=== PATIENT | female | born 1980 | race Caucasian/White ===

== ENCOUNTER → 2017-07-16 | Outpatient (CLI) | payer BC ==
[2017-07-16 15:10] LABS: BARBITURATES NEG (NEG); BENZODIAZEPINES POS (NEG); CANNABINOIDS POS (NEG); COCAINE NEG (NEG); METHADONE NEG (NEG); OPIATES NEG (NEG); PHENCYCLIDINE NEG (NEG)
[2017-07-16 15:23] LABS: ALBUMIN 4.1 g/dL (3.4-5.0); ALBUMIN/GLOBULIN RATIO 1.1 (1.0-1.7); CALCIUM 9.3 mg/dL (8.5-10.1); CREATININE 0.7 mg/dL (0.6-1.0); GFR 95.2; POTASSIUM 4.3 mmol/L (3.5-5.1); TOTAL BILIRUBIN 0.7 mg/dL (0.2-1.0)
== END | disposition home or self-care (01) ==
LOC: LAB 14:42
PROVIDERS: ATTEND Psychiatry & Neurology Neurology
DX: R55 Syncope and collapse (principal)
CPT/HCPCS: 36415; 80053; 80307; 82607; G0479

== ENCOUNTER → 2017-07-25 | Outpatient (CLI) | payer BC ==
--- NOTE | 2017-07-25 17:06 | EEG ---
DATE OF SERVICE: 07/25/2017 ELECTROENCEPHALOGRAM NUMBER: [id number] OBJECTIVE: This is a 36-year-old female patient with history of seizure or seizure-like episodes. EEG was requested to evaluate seizure activity. METHODS: Twenty electrodes were applied according to the international 10-20 electrode placement system. EKG monitoring, hyperventilation, intermittent photic stimulation, monopolar and bipolar montages are routinely utilized. The record was obtained on a digital system with video monitoring. FINDINGS: 1. Background: The patient was recorded in the awake and drowsy states. No actual sleep state was recorded. The overall background amplitude is 10-13 microvolts. A posterior dominant rhythm of 8-10 Hz is observed. 2. Abnormalities: No specific epileptiform discharge or electrographic seizure is seen. No focal or diffuse slowing. 3. Activation: Hyperventilation was performed with good efforts and normal response. Intermittent photic stimulation was performed with photic driving. No specific epileptiform discharge or electrographic seizure induced by hyperventilation or intermittent photic stimulation. IMPRESSION: This EEG is a normal study for the awake and drowsy states. No actual sleep state was recorded. No focal, lateralizing, specific epileptiform discharge or electrographic seizure is seen. However, a normal EEG does not rule out seizure. JOAO HO MD DR: DANO/nella JOB#: [id number] / [id number] LEA
== END | disposition home or self-care (01) ==
LOC: RT 13:32
PROVIDERS: ATTEND Psychiatry & Neurology Neurology
DX: F31.89 Other bipolar disorder (principal); R56.9 Unspecified convulsions; R06.4 Hyperventilation
CPT/HCPCS: 95816

== ENCOUNTER 2017-08-17 19:33 | Emergency (ER) | payer BC ==
[~2017-08-17] VITALS: Ht 172.7 cm; Wt 107.0 kg
[2017-08-17 20:15] LABS: BILIRUBIN,URINE NEGATIVE (NEG); GLUCOSE,URINE >=1000 mg/dL (NEG); NITRITE,URINE NEGATIVE (NEG); PROTEIN,URINE NEGATIVE (NEG-TRACE)
[2017-08-17 20:22] LABS: BACTERIA,URINE 0 /HPF (0-FEW); RBC,URINE 0 /HPF (0-2); SQUAMOUS EPITHELIAL CELL,UR MOD /LPF; WBC,URINE 0 /HPF (0-4)
[2017-08-17 20:22] LABS: BASO # 0.1 x10^3/uL (0.0-0.2); BASO % 1 % (0-3); EOS % 11 % (0-3); HEMATOCRIT 48.2 % (36.0-47.0); HEMOGLOBIN 16.4 g/dL (12.0-15.5); LYMPH # 3.4 x10^3/uL (1.0-4.8); LYMPH % 32 % (24-48); MEAN CORPUSCULAR HEMOGLOBIN 31 pg (25-35); MEAN CORPUSCULAR HGB CONC 34 g/dL (31-37); MEAN CORPUSCULAR VOLUME 92 fL (79-100); MONO % 4 % (0-9); NEUT % 53 % (31-73); PLATELET COUNT 269 x10^3/uL (140-400); RED BLOOD COUNT 5.23 x10^6/uL (3.50-5.40); RED CELL DISTRIBUTION WIDTH 13.8 % (11.5-14.5); WHITE BLOOD COUNT 10.9 x10^3/uL (4.0-11.0)
[2017-08-17 20:32] LABS: CALCIUM 9.4 mg/dL (8.5-10.1); CREATININE 0.8 mg/dL (0.6-1.0); GFR 81.6; POTASSIUM 3.8 mmol/L (3.5-5.1)
[2017-08-17 20:38] LABS: ALBUMIN 3.5 g/dL (3.4-5.0); ALBUMIN/GLOBULIN RATIO 0.9 (1.0-1.7); TOTAL BILIRUBIN 0.4 mg/dL (0.2-1.0); TOTAL PROTEIN 7.4 g/dL (6.4-8.2)
[2017-08-17 20:43] LABS: % BASOS 1 % (0-3); % EOS 10 % (0-5); PLT ESTIMATE ADEQUATE (ADEQUATE)
--- NOTE | 2017-08-17 20:52 | RAD ---
Limited abdominal ultrasound History:RUQ PAIN STARTED LAST NIGHT GOT WORSE AFTER EATING THIS EVENING Findings: Aorta: Not documented. Inferior vena cava: Patent Pancreas: Poorly visualized. Liver: Coarse echogenicity compatible with fatty infiltration. Upper limits normal in size. Gallbladder: No evidence of cholelithiasis, gallbladder wall thickening or pericholecystic fluid. Bile ducts: No evidence of dilatation Right kidney: 12.9 cm longitudinal without hydronephrosis. Impression: Fatty infiltration of the liver. No evidence of cholelithiasis. Electronically signed by: Shayne Coronado MD (08/17/2017 8:49 PM) [facility] [id number]
[2017-08-17] MEDS ORDERED: FAMO40TA57 PO (21:02)
[2017-08-17] MEDS ORDERED: ONDA4TAB10 SL (21:02)
--- NOTE | 2017-08-17 21:02 | PHYS DOC ---
Past Medical History Past Medical History: Anxiety, Depression, Diabetes-Type II, Ovarian Cyst, Other Additional Past Medical Histor: Borderline Personality Disorder; PTSD Past Surgical History: , Tonsillectomy, Other Additional Past Surgical Histo: x2; Partial Cervix removal Alcohol Use: Occasionally Drug Use: Marijuana Adult General Chief Complaint Chief Complaint: ABDOMINAL PAIN HPI HPI 36-year-old female presenting the emergency department today with epigastric abdominal pain that is constant nonradiating worse with movement and improved with rest. She denies chest pain shortness of breath. She has nausea without vomiting. She denies diarrhea constipation or blood in stools. She denies fevers or chills. Review of systems is negative for chest pain shortness of breath fevers or chills. All other review of systems is negative unless otherwise noted in history of present illness. ED course: 36-year-old female presenting with epigastric abdominal pain. Upon arrival the patient is afebrile with mild tachycardia. Pertinent physical exam findings show soft nontender abdomen. Negative McBurney's point. Negative Turner sign. The remainder the exam is unremarkable. Blood work obtained along with ultrasound of the right upper quadrant which was negative for acute pathology. The patient was then discharged home in stable condition to follow up with their primary care physician over the next 2-3 days. They were to return if their symptoms worsened or if they were concerned for any reason. Face -to-face discharge instructions and return precautions were given. Patient's questions were answered to their satisfaction. Patient is comfortable plan. Review of Systems Review of Systems SEE ABOVE. Allergies Allergies Allergies Coded Allergies Type Severity Reaction Last Updated Verified metformin Allergy Severe 08/17/17 Yes Physical Exam Physical Exam SEE ABOVE Constitutional: Well developed, well nourished, no acute distress, non-toxic appearance. [] HENT: Normocephalic, atraumatic, bilateral external ears normal, oropharynx moist, no oral exudates, nose normal. [] Eyes: PERRLA, EOMI, conjunctiva normal, no discharge. [] Neck: Normal range of motion, no tenderness, supple, no stridor. [] Cardiovascular:Heart rate regular rhythm, no murmur [] Lungs & Thorax: Bilateral breath sounds clear to auscultation [] Abdomen: Bowel sounds normal, soft, no tenderness, no masses, no pulsatile masses. [] Skin: Warm, dry, no erythema, no rash. [] Back: No tenderness, no CVA tenderness. [] Extremities: No tenderness, no cyanosis, no clubbing, ROM intact, no edema. [] Neurologic: Alert and oriented X 3, normal motor function, normal sensory function, no focal deficits noted. [] Psychologic: Affect normal, judgement normal, mood normal. [] Current Patient Data Vital Signs Vital Signs Date Time Temp Pulse Resp B/P (MAP) Pulse Ox O2 Delivery O2 Flow Rate FiO2 08/17/17 19:56 98.2 98 20 138/98 (111) 98 Room Air 98.2 Lab Values Laboratory Tests Test 08/17/17 19:39 08/17/17 20:07 08/17/17 20:15 Urine Collection Type Unknown Urine Color Yellow Urine Clarity Clear Urine pH 6.0 Urine Specific [place] >=1.030 Urine Protein Negative mg/dL (NEG-TRACE) Urine Glucose (UA) >=1000 mg/dL (NEG) Urine Ketones (Stick) Negative mg/dL (NEG) Urine Blood Negative (NEG) Urine Nitrite Negative (NEG) Urine Bilirubin Negative (NEG) Urine Urobilinogen Dipstick 1.0 mg/dL (0.2 mg/dL) Urine Leukocyte Esterase Negative (NEG) Urine RBC 0 /HPF (0-2) Urine WBC 0 /HPF (0-4) Urine Squamous Epithelial Cells Mod /LPF Urine Bacteria 0 /HPF (0-FEW) POC Urine HCG, Qualitative Hcg negative (Negative) White Blood Count 10.9 x10^3/uL (4.0-11.0) Red Blood Count 5.23 x10^6/uL (3.50-5.40) Hemoglobin 16.4 g/dL (12.0-15.5) H Hematocrit 48.2 % (36.0-47.0) H Mean Corpuscular Volume 92 fL (79-100) Mean Corpuscular Hemoglobin 31 pg (25-35) Mean Corpuscular Hemoglobin Concent 34 g/dL (31-37) Red Cell Distribution Width 13.8 % (11.5-14.5) Platelet Count 269 x10^3/uL (140-400) Neutrophils (%) (Auto) 53 % (31-73) Lymphocytes (%) (Auto) 32 % (24-48) Monocytes (%) (Auto) 4 % (0-9) Eosinophils (%) (Auto) 11 % (0-3) H Basophils (%) (Auto) 1 % (0-3) Neutrophils # (Auto) 5.7 x10^3uL (1.8-7.7) Lymphocytes # (Auto) 3.4 x10^3/uL (1.0-4.8) Monocytes # (Auto) 0.5 x10^3/uL (0.0-1.1) Eosinophils # (Auto) 1.2 x10^3/uL (0.0-0.7) H Basophils # (Auto) 0.1 x10^3/uL (0.0-0.2) Segmented Neutrophils % 48 % (35-66) Band Neutrophils % 2 % (0-9) Lymphocytes % 36 % (24-48) Atypical Lymphocytes % (Manual) 1 % (0-0) H Monocytes % 2 % (0-10) Eosinophils % 10 % (0-5) H Basophils % 1 % (0-3) Platelet Estimate Adequate (ADEQUATE) Sodium Level 139 mmol/L (136-145) Potassium Level 3.8 mmol/L (3.5-5.1) Chloride Level 104 mmol/L (98-107) Carbon Dioxide Level 25 mmol/L (21-32) Anion Gap 10 (6-14) Blood Urea Nitrogen 13 mg/dL (7-20) Creatinine 0.8 mg/dL (0.6-1.0) Estimated GFR (Cockcroft-Gault) 81.6 BUN/Creatinine Ratio 16 (6-20) Glucose Level 149 mg/dL (70-99) H Calcium Level 9.4 mg/dL (8.5-10.1) Total Bilirubin 0.4 mg/dL (0.2-1.0) Aspartate Amino Transferase (AST) 11 U/L (15-37) L Alanine Aminotransferase (ALT) 26 U/L (14-59) Alkaline Phosphatase 62 U/L (46-116) Total Protein 7.4 g/dL (6.4-8.2) Albumin 3.5 g/dL (3.4-5.0) Albumin/Globulin Ratio 0.9 (1.0-1.7) L Lipase 121 U/L (73-393) Laboratory Tests 08/17/17 20:15 Laboratory Tests 08/17/17 20:15 EKG EKG [] Radiology/Procedures Radiology/Procedures [] Course & Med Decision Making Course & Med Decision Making Pertinent Labs and Imaging studies reviewed. (See chart for details) [] Dragon Disclaimer Dragon Disclaimer This electronic medical record was generated, in whole or in part, using a voice recognition dictation system. Departure Departure Impression: Primary Impression: Epigastric abdominal pain Disposition: HOME, SELF-CARE Condition: STABLE Referrals: ROQUE TURNER DO (PCP) Patient Instructions: Abdominal Pain Additional Instructions: Thank you for allowing us to participate in your care today. Followup with your primary care physician in 3 days if your symptoms do not improve. Call your Primary Doctor tomorrow and inform them of your visit today. If you do not have a primary care provider you can ask for a list of our primary care providers. Return to the emergency department you have any new or concerning findings. This should be evaluated by the primary care physician and any necessary consulting services for continued management within a few days after discharge. Return to emergency room if you have any new or concerning symptoms including but not limited to fever, chills, nausea, vomiting, intractable pain, any new rashes, chest pain, shortness of air, uncontrolled bleeding, difficulty breathing, and/or vision loss. Scripts Ondansetron (ZOFRAN ODT) 4 Mg Tab.rapdis 1 TAB SL PRN Q8HRS Y for NAUSEA, #6 TAB Prov: JIMI BADILLO MD 08/17/17 Famotidine (PEPCID) 40 Mg Tablet 40 MG PO HS, #14 TAB 0 Refills Prov: JIMI BADILLO MD 08/17/17 JIMI BADILLO MD Aug 17, 2017 21:02
[2017-08-17 21:47] VITALS: BP 133/91
== END 2017-08-17 21:50 | disposition home or self-care (01) ==
LOC: ER 19:33
DX: R10.13 Epigastric pain (principal); R00.0 Tachycardia, unspecified; F41.9 Anxiety disorder, unspecified; F32.9 Major depressive disorder, single episode, unspecified; E11.9 Type 2 diabetes mellitus without complications; F43.10 Post-traumatic stress disorder, unspecified; Z88.8 Allergy status to other drugs, medicaments and biological substances
CPT/HCPCS: 36415; 76705; 80053; 81001; 81025; 83690; 85007; 85025; 99285-25